=== PATIENT | female | born 1950 | race Caucasian/White ===

== ENCOUNTER → 2021-07-02 10:58 | Outpatient (CLI) | payer MEDICARE, SELFPAY ==
[2021-07-02 13:03] LABS: COVID19 -Nasal RAPID Negative (Negative)
== END ==
PROVIDERS: Visit Provider Physician Assistant
DX: Z20.822 Contact with and (suspected) exposure to COVID-19 (principal)
CPT/HCPCS: 87635; C9803

== ENCOUNTER 2021-07-05 06:16 | Inpatient (IN) | payer MEDICARE, SELFPAY ==
[2021-06-22 12:46] VITALS: BMI 26.6
[2021-07-05] VITALS (18 sets, daily range): BP systolic 110–148; BP diastolic 52–78; PULSE 70–110; RESP 12–22; TEMP 35.5–37.3; O2SAT 93–99; BMI 26.6
--- NOTE | 2021-07-05 06:00 | DI.RAD.S_ITS ---
PROCEDURE: XR KNEE RT 1TO2V INDICATIONS: postop prosthesis placement TECHNIQUE: 2 view(s) of the knee acquired. COMPARISON: [facility], CR, XR KNEE ARTHRITIC SERIES BI, 12/24/2020, 10:28. FINDINGS: Bones: Interval revision of the right knee arthroplasties with the current prosthetic components in expected positions. No periprosthetic fractures or evidence of loosening/infection. Soft tissues: Overlying postoperative changes are noted. IMPRESSION: Expected immediate postoperative appearance of Revised right TKA. Dictated by: Ty Galvan RRA Interpreted: Tyson Rowe MD on 07/05/2021 at 11:01 Transcribed by: KATHARINA on 07/05/2021 at 11:02 Approved by: Tyson Rowe M.D. on 07/05/2021 at 16:24
[2021-07-05] MEDS: ACETAMINOPHEN 325 MG TABLET 975 MG PO (06:49)
[2021-07-05] MEDS: LACTATED RINGERS 1,000 ML 42 ML IV ×2 (06:50→10:10)
[2021-07-05] MEDS: PREGABALIN 75 MG CAPSULE PO (06:50)
[2021-07-05] MEDS: CELECOXIB 200 MG CAPSULE PO (06:50)
--- NOTE | 2021-07-05 07:28 | PM.PREOP ---
Pre-operative Note COVID-19 COVID-19 status: Negative Result date/Date tested (Pos, Neg/Pending): 07/02/21 Interval Note History & Physical reviewed/Exam performed by Physician: Yes Changes to H&P: No
--- NOTE | 2021-07-05 07:29 | P.OP_ITS ---
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 Revision right total knee replacement, tibial and femoral components 2. Repair of patellar tendon avulsion from tibia Same procedure as scheduled: Yes (With the addition of repair of the patellar tendon) Indications: The patient is a 70-year-old woman had a previously well- functioning right total knee replacement with the onset of pain approximately a year ago without relief with non operative measures. Preoperative workup has shown no infection and also no obvious loosening on bone scan. She has requested revision after discussion the risks benefits and alternatives. Risks discussed included but were not limited to: Failure to relieve pain, failure to improve function, stiffness, infection, nerve damage, deep venous thrombosis, pulmonary embolism, stroke, myocardial infarction, permanent paralysis, aspiration pneumonia and . Surgeon: Giovani Carranza [employer] Operator: Neftaly Emmanuel Click Yes if Unassisted: No Operative Notes Findings: Improved flexion after revision. The prosthetic was not grossly obviously loose but relatively quickly from the bone so likely had loosening occurring. Closure Type: primary Specimen(s): other (Tissue and swabs for culture) Prosthetic devices, grafts, tissues, transplants, or devices: Implants used in this procedure were manufactured by the [employer] and [email or web address] and included the Legion revision total knee system total knee replacement with a size 4 right revision tibial base plate with a 4 mm offset marine animal trainer and a 15 x 120 mm straight Press-Fit stem. On the femoral side there was a size 5 Oxinium femoral component with a 4 mm offset marine animal trainer and a straight 16 mm x 120 mm probe Press-Fit stem. There was a 13 mm high flexion crosslink polyethylene tibial insert. Patella was left in situ. In addition two Mitek Healix Advance BR 5.5 mm triple threaded anchors were used to reattach the patellar tendon. Applied: implant(s) Estimated Blood Loss (mL): 50 Blood products transfused: none Tourniquet time (min): 84 Procedure in detail: The patient was seen in the pre-operative area, where the patient identified the right knee as the operative site and this was marked with my initials. The patient received pre-operative antibiotics, and was taken to the operating room and placed on the operative table in the supine position. After satisfactory anesthesia, a multimedia services manager out was performed. The right leg was encircled with a tourniquet about the proximal thigh, and the leg was prepared from the toes to the tourniquet with ChloroPrep in the usual fashion and draped through sterile drapes. The leg was elevated and exsanguinated with Eschmark bandage and the tourniquet inflated to 250 mmHg pressure. The knee was approached through an the previous incision, excising the scar and carried into the knee through a medial parapatellar arthrotomy. Care was taken to mobilize the patella without eversion however during retraction the patellar tendon insertion did avulse from the tibia. The tibial insert was removed. The femoral component was removed from the femur using revision osteotomes and flexible osteotomes. Likewise the tibia was removed in the same manner. The intramedullary guide was used to progressively ream the tibial canal to the appropriate depth and diameter. The cutting block for the tibia was placed on the handle of the Reamer. A proximal tibial skim cut was made. The appropriate Sizer was applied and a 4 mm offset at the 5 o'clock position was found to be appropriate. The guide was pinned in and the proximal offset for the stem placed with the Reamer. The Reamer was then progressed distally down the handle of intramedullary bernadette to ream for the marine animal trainer. The trial tibial component was assembled and placed. We then turned our attention to the femur. The intramedullary guide reamers were used to the appropriate fit and depth. The distal cutting block was applied and a distal skim cut made for the femur. Based on the size of the extracted femoral component the 5 block was chosen. The anterior posterior and chamfer cuts were then made. Again the central canal was reamed to the appropriate depth both with an offset for the proximal offset and then down the handle of the Reamer to allow position of the marine animal trainer. The trial femoral component was created and implanted. The intercondylar notch was cut through the femoral trial. We then trialed with various sizes of tibial inserts until stability and range of motion was optimized. Range of motion was 0-130 degrees with good stability throughout the range. The trials were then removed. The bone was prepared with pulsatile lavage, and dried with a sponge. Cement was applied and the final prosthetics placed. Excess cement was removed during and after cement curing. After confirming there was no extruded cement posteriorly, the final tibial insert was placed. The joint capsule and subcutaneous tissues wwere injected with a mixture of 60 ml 0.25% Marcaine mixed with 20 ml Exparel and 4 mg of morphine for post-operative pain control. The knee was copiously irrigated and the tourniquet deflated. Hemostasis was o btained. The 2 suture anchors were placed in the tibial tubercle and the sutures used to reattached the distal patellar tendon. This gave good fixation of the tendon which did not appear to be stressed in deep flexion. This was reinforced by capsular closure. The capsule was closed with interrupted # 2 polyester suture. The subcutaneous layer was closed with 3-0 Vicryl, and the skin with a running 3-0 V-Lock suture and SteriStrips. An Aquacel Ag dressing was applied and the patient was taken to recovery having tolerated the procedure well. Complications: other (Avulsion of the patellar tendon, repaired as noted above.) Post-operative Condition: stable Disposition: PACU Plan for aftercare: The patient will be maintained on a standard total knee replacement protocol with weight bearing as tolerated. The patient will receive aspirin and sequential compression devices for DVT prophylaxis. The patient will be discharged home when safe for the home environment.
[2021-07-05] MEDS: CEFAZOLIN 1 GM VIAL 2 GM IV (07:55)
[2021-07-05] MEDS: TRANEXAMIC ACID 1,000 MG VIAL 1000 MG INJ ×2 (08:03→09:48)
--- NOTE | 2021-07-05 08:25 | SUR.OPER ---
Supine on padded OR bed. Pillow under head, arms secured on padded armboards <90 degree abduction. Safety belt across torso. Non-operative leg secured with tape over blanket over lower leg. Operative leg secured in DeMayo/Aren/Nathe positioner. Foam padded brace at thigh of operative leg.
[2021-07-05] MEDS: BUPIVACAINE LIPOSOME 266 MG/20 ML VIAL INJ (08:35)
[2021-07-05] MEDS: MORPHINE 4 MG/ML INJ INJ (08:36)
[2021-07-05] MEDS: BUPIVACAINE 0.25% (PF) 60 ML, EPINEPHrine 0.3 MG INJ (08:37)
--- NOTE | 2021-07-05 10:23 | SUR.PHASEI ---
Patient to PACU after General Anesthesia. Pt awoke to voice and denied pain. Breathing unassisted on room air. SBAR report from Anesth and Naseem RN
[2021-07-05] MEDS: LACTATED RINGERS 1,000 ML 100 ML IV ×3 (11:23→18:43)
[2021-07-05] MEDS: INSULIN LISPRO 100 UNIT/ML 3ML VIAL SUBCUT ×2 (12:15→17:05)
[2021-07-05] MEDS: IBUPROFEN 400 MG TABLET PO ×3 (12:18→20:31)
--- NOTE | 2021-07-05 14:35 | PT.IIE ---
Current Diagnoses Mechanical loosening of internal right knee prosthetic joint, initial encounter (07/05/21) Surgery Performed Operation Date: 07/05/21 07:45 Actual Procedures p Total Knee Arthroplasty Revision- all components(Right) - Giovani Carranza MD Medical History (Last Updated 06/22/21 @ 13:13 by Ludivina Cruz RN) Acid reflux Diabetes HLD (hyperlipidemia) HTN (hypertension) Osteoarthritis Physical Therapy Inpatient Evaluation/Re-Eval M1 PT/OT-IP Prior Functional Status Start: 07/05/21 11:32 Freq: NEEDED Status: Active Protocol: Document 07/05/21 14:35 JG (Rec: 07/05/21 15:01 [id number]) Medical Review Prior Functional Status Medical History Reviewed Yes Diet/Fluid Consistency Regular Communication Pt able to understand and communicate with full sentances. Mobility and Gait Pt was able to ambulate in her home and community without AD , but with R knee pain. Social History Household Members spouse,other Living Arrangements House Number of Floors (Floors) Two Floors Number of Stairs To Enter/Railing? 3 stairs inside home to access bedroom and upstairs bathroom . [place] does not have railing, has hahn on both sides. Home Environment Standard Height Toilet,Tub/ Shower Home Equipment Front Wheel Walker,Straight Cane,Grab Bars In Shower Employment Status Unknown Additional Social History Comment Pt reports spouse does not have any limitations and is able to provide caregiving during R TKA recovery. Pt reports she and her spouse are a team. Pt reports that her son and grandson live next door and they visit almost every day. 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 M2 PT-IP Current Condition Start: 07/05/21 11:32 Freq: NEEDED Status: Active Protocol: Document 07/05/21 14:35 JG (Rec: 07/05/21 15:01 Laine [id number]) Physical Therapy Current Condition Current Condition Evaluation Date 07/05/21 Treatment Diagnosis S/P R TKA, Impaired mobility and gait, difficulty walking Onset Date 07/05/21 M3 PT-IP Subjective Start: 07/05/21 11:32 Freq: NEEDED Status: Active Protocol: Document 07/05/21 14:35 JG (Rec: 07/05/21 15:01 [id number]) Subjective Physical Therapy Visit Type Type Initial Evaluation Visit Start Time 14:07 Visit Stop Time 14:35 Total Visit Minutes 28 Physical Therapy Visit Comments Patient Comments Pt reports that she is feeling better compared at this point post-surgery compared to her prior two knee surgeries. Patient Goals Pt wants to be able to ambulate around her home and community without knee pain or distance limitation. Therapy Pain Assessment Pain Present Pain Present Pain Reported Location R Knee Intensity 7 Scale Used Numeric (0 - 10) Description Acute,With Movement Pain Behaviors Guarding Pain Management Techniques Apply Cold,Re-positioning, Timing of Activity with Medications M4 PT-IP Mobility and Gait Start: 07/05/21 11:32 Freq: NEEDED Status: Active Protocol: Document 07/05/21 14:35 AW (Rec: 07/05/21 14:55 AW [id number]) PT-Bed Mobility Assessment Supine to Sit Supine to Sit Minimal Assistance,1 Person Assistance,Head of Bed Elevated Scooting Scooting to Edge of Bed Contact Guard Assistance PT-Transfer Assessment Sit to and From Stand Sit to and from Stand Contact Guard Assistance, Minimal Assistance,1 Person Assistance,Use of Upper Extremities Equipment Transfer Assistive Device Gait Belt,Front Wheeled Walker Transfers Transfer Destination Chair,Toilet Transfer Technique ambulated with FWW Transfer Ability Level of Assist Minimal Assistance,1 Person Assistance,Use of Upper Extremities Comments Mobility Comments Pt was lying in bed as PT and SPT arrived. She needed min assist to support her operative leg to the right EOB . She was able to sit with and without UE support. She stood using FWW and was able to shift weight laterally and offload her RLE appropriately. She ambulated toward the window with FWW CGA and then requested to use the toilet. Arriving at the toilet, pt reported nausea and had a small amount of emesis in standing. With symptoms resolved, she sat on the toilet min assist and cues for sequencing. Sit to stand from the toilet was min assist. Pt walked to the bedside chair and transferred CGA. Pt was left with call light and tray table in reach, fresh ice packs on R knee. Pt agreed to use the call light for all mobility needs. Gait Assessment Gait Gait Assistance Required: Contact Guard Assist Distance (Feet) 25 Able to Maintain Weight Bearing Status Yes During Gait Assistive Devices Assistive Device Gait Belt,Front Wheeled Walker Orthotic/Prosthetic Devices or Brace: No Gait Deviations General Gait Pattern Antalgic,Decreased Stride Length,Decreased Feet Clearance,Flexed Trunk,Step-to Gait Factors Limiting Gait Function Factors Limiting Gait Function Decreased Strength,Limited Range of Motion,Pain Comments Gait Comments See mobility comments for details. Stair Climbing Assessment Comments Stair Climbing Comments Not assessed. PT-Balance Assessment Sitting Balance and Reactions Static Sitting Balance Ability Normal Dynamic Sitting Balance Ability Good Standing Balance and Reactions Static Standing Balance Ability Good Dynamic Standing Balance Ability Good Device Used FWW M5 PT-IP Objective Assessments Start: 07/05/21 11:32 Freq: NEEDED Status: Active Protocol: Document 07/05/21 14:35 JG (Rec: 07/05/21 15:01 [id number]) Orientation Orientation/Cognition Level of Alertness Alert Orientation Name,Place,Situation Language Function Ability No Deficits Noted Safety Awareness Understands Safety Issues Memory Description No Deficits Noted Comments Pt reported understanding weightbearing as tolerated and was highly interested in transfering from bed to chair. Pt demostrated confidence while transfering and ambulating. Pt may need further education on weightbearing as tolerated, recovery expectations, and activity modification. Gross Range of Motion Lower Extremity ROM Assessment Right Impaired Impairments L knee and ankle AROM WFL. R ankle AROM WFL. R knee AROM flex moderately limited and ext mild limitation. R knee PROM flex mild limitation and no ext limitation. Strength Lower Extremity Strength Assessment Right Impaired Ankle 5/5 bilat PF and DF. 5/5 L knee flex and ext. Comments Strength Comments L LE gross strength 5/5. R knee not tested. Coordination Assessment Gross Coordination Gross Coordination WNL Sensation Assessment Sensation Gross Sensation WNL Light Touch Intact Proprioception (Position) Intact Comments Sensation Comments Pt denied sensation difference between R and L. Pt denied sensation dysfunction symptoms bilat LE. Muscle Tone Muscle Tone WNL Yes M6 PT-IP Treatment Start: 07/05/21 11:32 Freq: NEEDED Status: Active Protocol: Document 07/05/21 14:35 JG (Rec: 07/05/21 15:01 [id number]) Physical Therapy Treatment Education Education Provided Precautions,Weight Bearing Status,Post-Op Packet,Safety M7 PT-IP Assessment and Plan Start: 07/05/21 11:32 Freq: NEEDED Status: Active Protocol: Document 07/05/21 14:35 JG (Rec: 07/05/21 15:01 [id number]) PT Summary Assessment and Plan Potential Rehabilitation Potential Excellent Status of Condition at Evaluation Evolving Summary Impairments Pain,ROM,Transfers,Gait, Activity Tolerance Progress Towards Goals Progressing Toward Goals Assessment Summary Claudia is a 70 yo woman seen for PT evaluation on day of surgery following R TKA. She was indep at baseline for all ADLs, ambulation, transfers, and functional movement with increase in R knee pain. On evaluation, Claudia required 1 person min assist with gait pattern, hand placement during transfers, and FWW management cues. Pt will likely be safe to discharge to home with assist once medically cleared. Will need to progress gait distance, decrease assist requirement, and demonstrate safe stair ambulation before discharge. Goals Bed Mobility Goal Standby Assistance Transfer Goal Standby Assistance,Front Wheeled Walker Gait Goal Standby Assistance,Front Wheel Walker Gait Distance 150 Other Goals 3 stairs ascend and descend w/ CGA Days to Meet Goals 2 Frequency of Treatment Frequency Of Treatment Twice a Day Treatment Plan Physical Therapy Treatment Plan Bed Mobility Training,Transfer Training,Gait Training, Therapeutic Exercise,Balance Retraining,Post Op Education, Discharge Planning,Hot or Cold Pack Other Recommendations and Next Treatment Progress gait with FWW. Focus Introduce stair ambulation. Introduce ther ex. Weight Bearing Status Weight Bearing Status Weight Bear as Tolerated Recommendations To Nursing Amount of Assist Needed 1 Person Assist Discharge Recommendations PT Discharge Recommendations Home with Assistance, Outpatient PT Other Discharge Recommendations Pt reports 12 OP PT appts scheduled Transportation Needs at Discharge Private Vehicle Treatment was provided by Berenice Ledesma, SPT and supervised by Autumn Hercules, PT. I personally reviewed this note and agree with its contents.
[2021-07-05] MEDS: ACETAMINOPHEN 325 MG TABLET 650 MG PO ×2 (15:54→20:32)
--- NOTE | 2021-07-05 19:29 | PC.NURSE ---
Patient A/O x 3, remains 96-99% on RA throughout shift. Denies pain. RLE DSG remains CDI, CMS intact. VSS. LR @ 100 infusing without complication. Patient voided while up with PT, reports she is passing flatus, BT active x 4. Patient wearing glasses. brought belongings from home. Call light in reach. Denies further needs.
[2021-07-05] MEDS: METFORMIN HCL 500 MG TABLET 1000 MG PO (20:31)
[2021-07-05] MEDS: DOCUSATE 100 MG CAPSULE PO (20:31)
[2021-07-05] MEDS: ASPIRIN EC 81 MG TABLET PO (20:32)
[2021-07-05] MEDS: PANTOPRAZOLE DR 40 MG TABLET PO (20:32)
[2021-07-06] MEDS: IBUPROFEN 400 MG TABLET PO ×2 (02:00→09:33)
[2021-07-06] MEDS: LACTATED RINGERS 1,000 ML 100 ML IV (03:30)
[2021-07-06 05:31] VITALS: BP 116/56; PULSE 69; RESP 69; TEMP 36; O2SAT 99
[2021-07-06 06:16] LABS: Hematocrit 29.3 % (36-46); Hemoglobin 9.6 g/dL (12.0-16.0)
[2021-07-06 07:30] VITALS: BP 130/67; PULSE 79; RESP 20; TEMP 35.5; O2SAT 96
[2021-07-06 07:52] VITALS: O2SAT 96
[2021-07-06 09:32] VITALS: BP 130/67
[2021-07-06] MEDS: DOCUSATE 100 MG CAPSULE PO (09:32)
[2021-07-06] MEDS: ACETAMINOPHEN 325 MG TABLET 650 MG PO (09:32)
[2021-07-06] MEDS: lisinopriL 20 MG TABLET PO (09:32)
[2021-07-06] MEDS: PANTOPRAZOLE DR 40 MG TABLET PO (09:32)
[2021-07-06] MEDS: ATORVASTATIN 20 MG TABLET 80 MG PO (09:33)
[2021-07-06] MEDS: ASPIRIN EC 81 MG TABLET PO (09:33)
[2021-07-06] MEDS: METFORMIN HCL 500 MG TABLET 1000 MG PO (09:33)
[2021-07-06] MEDS: PSYLLIUM HUSK 1 PACKET PO (09:34)
--- NOTE | 2021-07-06 09:59 | PM.DS.1 ---
History of Present Illness History of Present Illness Date Patient Seen: 07/06/21 Time Patient Seen: 09:59 Chief complaint: Right knee pain s/p right TKA revision Narrative: The patient is complaining of mild right knee pain this morning. She is currently up and moving with physical therapy. She denies any new numbness or tingling. No nausea or vomiting. No fevers, chills, night sweats. Overall she is feeling well and would like to be discharged home today after she clears physical therapy. Discharge Providers Provider Date of admission: 07/05/21 06:16 Discharge Date: 07/06/21 Primary care physician: Peggy Swanson PA-C Consults: 07/05/21 11:04 Consult to Discharge Planning Routine Comment: Consult to Physical Therapy Evaluate & Treat Comment: Physician Instructions: postop TKA protocol Consult to Respiratory Therapy Evaluate & Treat Comment: Physician Instructions: Evaluate and treat Discharge provider: Kelly Perez PA-C Summary Hospital Course Discharge Diagnosis: -Failed right total knee replacement -Intraoperative avulsion of patellar tendon from tibia Hospital Course: Date of procedure: 07/05/21 Time of procedure: 10:19 Procedure & Clinicians Procedure: 1.? Revision right total knee replacement, tibial and femoral components 2. Repair of patellar tendon avulsion from tibia Same procedure as scheduled: Yes (With the addition of repair of the patellar tendon) Indications: The patient is a 70-year-old woman had a previously well-functioning right total knee replacement with the onset of pain approximately a year ago without relief with non operative measures.? Preoperative workup has shown no infection and also no obvious loosening on bone scan.? She has requested revision after discussion the risks benefits and alternatives.? Risks discussed included but were not limited to:? Failure to relieve pain, failure to improve function, stiffness, infection, nerve damage, deep venous thrombosis, pulmonary embolism, stroke, myocardial infarction, permanent paralysis, aspiration pneumonia and . Surgeon: Giovani Carranza Electronics Technician Apprentice: Neftaly Emmanuel Click Yes if Unassisted: No Operative Notes Findings: Improved flexion after revision.? The prosthetic was not grossly obviously loose but relatively quickly from the bone so likely had loosening occurring. Closure Type: primary Specimen(s): other (Tissue and swabs for culture) Prosthetic devices, grafts, tissues, transplants, or devices: Implants used in this procedure were manufactured by the [employer] and [employer] and included the [facility] revision total knee system total knee replacement with a size 4 right revision tibial base plate with a 4 mm offset remelt pan tank operator and a 15 x 120 mm straight Press-Fit stem.? On the femoral side there was a size 5 Oxinium femoral component with a 4 mm offset remelt pan tank operator and a straight 16 mm x 120 mm probe Press-Fit stem.? There was a 13 mm high flexion crosslink polyethylene tibial insert.? Patella was left in situ.? In addition two [employer] Healix Advance BR 5.5 mm triple threaded anchors were used to reattach the patellar tendon. Applied: implant(s) Estimated Blood Loss (mL): 50 Blood products transfused: none Tourniquet time (min): 84 Status at Discharge Cognitive/behavioral status at discharge: oriented Functional status at discharge: uses cane/walker Overall status at discharge: patient is progressing back to baseline Exam Vital Signs (past 8 hours): - 07/06/21 05:31 07/06/21 07:30 07/06/21 07:52 Temperature 96.8 F L 96 F L Pulse Rate 69 79 Respiratory Rate 69 H 20 Blood Pressure 116/56 L 130/67 Pulse Oximetry 99 96 96 07/06/21 09:32 Temperature Pulse Rate Respiratory Rate Blood Pressure 130/67 Pulse Oximetry Fraction of Inspired Oxygen 21 Oxygen Delivery Method Room Air Oxygen Flow Rate 0 Narrative Exam Narrative: Pleasant 70-year-old female, standing with her physical therapist, no acute distress. Dressing is clean, dry, intact. Bilateral lower extremity motor function is grossly intact to light touch. Bilateral calves are soft, nontender to palpation. Objective Labs Result Diagrams: 07/06/21 05:50 Labs: Laboratory Results - last 24 hr 07/06/21 05:50 Hgb 9.6 L Hct 29.3 L PFSH Medical History Acid reflux Diabetes HLD (hyperlipidemia) HTN (hypertension) Osteoarthritis Surgical History H/O left wrist surgery History of bilateral tubal ligation History of bunionectomy of right great toe History of prosthetic unicompartmental arthroplasty of right knee History of right knee joint replacement Hx of tonsillectomy Social History household members: spouse and other Smoking Status: Never smoker alcohol intake: never Discharge Assessment & Plan Assessment and Plan Assessment: Stable status post right total knee arthroplasty revision and intraoperative patellar tendon avulsion from the tibia Plan of Treatment: -mobilize with PT. Weightbearing as tolerated with front wheel walker -continue with current pain regimen and DVT prophylaxis -DC home when cleared by PT Discharge Plan Discharge Plan Patient Disposition: Home Discharge orders & Medications Prescriptions: New acetaminophen 500 mg capsule 500 mg PO Q4H MDD Max 3000 mg per day PRN (Reason: fever or pain) Qty: 90 RF: 0 aspirin 81 mg Tablet,Delayed Release (Dr/Ec) 81 mg PO BID PRN (Reason: X6 weeks to prevent blood clots) Qty: 90 RF: 0 docusate sodium 100 mg Capsule 100 mg PO BID PRN (Reason: Constipation from narcotic pain meds) Qty: 20 RF: 0 ibuprofen 400 mg Tablet 400 mg PO Q4HR MDD Max 2400 mg per day PRN (Reason: Pain/inflammation) Qty: 90 RF: 0 oxycodone 5 mg Tablet 5 mg PO Q4H PRN (Reason: Pain, Moderate (4-6)) Qty: 20 RF: 0 Continued atorvastatin 80 mg Tablet 80 mg PO DAILY RF: 0 lisinopril 20 mg Tablet 20 mg PO DAILY RF: 0 omeprazole 40 mg Capsule,Delayed Release(Dr/Ec) 40 mg PO BID RF: 0 glimepiride 1 mg Tablet 3 mg PO QAM RF: 0 metformin 1,000 mg Tablet 1,000 mg PO BID RF: 0 naproxen sodium [Aleve] 220 mg Capsule 440 mg PO DAILY PRN (Reason: Pain) RF: 0 Metamucil 3.4 gram/5.4 gram Powder 1 tbsp PO DAILY RF: 0 Discontinued aspirin [Aspir-81] 81 mg Tablet,Delayed Release (Dr/Ec) 81 mg PO BEDTIME RF: 0 Follow up/Referrals: Peggy Swanson PA-C [Primary Care Provider] - Giovani Carranza MD [Physician] - (10-14 days for postoperative visit) Diet/Activity/Treatments Diet: Diet as Tolerated and Regular Other treatments: Medications: -Aspirin 81mg twice daily x6 weeks to prevent blood clots. -OTC Tylenol 500 mg 1 tablet every 4 hours as needed for pain/fever. Max 6 tablets per day. -Ibuprofen 400 mg 1 tablet every 4 hours as needed for pain/inflammation. Max 2,400 mg per day. -Oxycodone 5 mg take 1-2 tablets every 4 hours as needed for moderate-severe pain (narcotic pain medication). -As needed medications: -Ducolax and /or MiraLax as needed for constipation from narcotic pain medications. -Pepcid AC as needed for stomach upset (usually from aspirin or ibuprofen). Dressing/Wound care: -Remove the Moises wrap 48 hours after surgery. -Keep Aquacell dressing in place until postoperative follow-up office visit. -Okay to shower. Keep wound out of direct water stream. No soaking or submerging until all the scabs fall off (approximately 6 weeks). -Please call the office if dressing becomes wet, soiled, or saturated. Activities: -Weight-bearing as tolerated. Use front wheeled walker, and progress to cane when safe. -Continue with home exercises as directed by your physical therapist. -Elevate ?toes above the nose if you have significant swelling in your lower leg. (A wedge pillow is easiest.) -Ice your incision as needed for pain/inflammation/swelling. Protect your skin with a folded pillowcase. Follow-up: -Follow-up with your surgeon or PA in the office in 10-14 days after surgery. -Follow-up with your surgeon 6 weeks postoperatively. Call the office if you have chest pain, shortness of breath, significant swelling that will not resolve with elevating, fever over 101?, significantly worsening pain. [facility]: [phone] Skin/Wound/Dressing Care Report to your healthcare provider any signs of infection, such as:: chills, fever, night sweats, unusual drainage and unusual redness Visit Report/Discharge Packet Instructions: DI for Knee Replacement Stand Alone Forms: Surgery Discharge Discharge Data Primary Care Provider: Peggy Swanson VTE Deep Vein Thrombosis/Pulmonary Embolism Present on Admission: No
--- NOTE | 2021-07-06 10:04 | PT.IPTN ---
Current Diagnoses Mechanical loosening of internal right knee prosthetic joint, initial encounter (07/05/21) Surgery Performed Operation Date: 07/05/21 07:45 Actual Procedures p Total Knee Arthroplasty Revision- all components(Right) - Giovani Carranza MD Physical Therapy Treatment Note M2 PT-IP Current Condition Start: 07/05/21 11:32 Freq: NEEDED Status: Active Protocol: Document 07/05/21 14:35 JG (Rec: 07/05/21 15:01 JG [id number]) Physical Therapy Current Condition Current Condition Evaluation Date 07/05/21 Treatment Diagnosis S/P R TKA, Impaired mobility and gait, difficulty walking Onset Date 07/05/21 M3 PT-IP Subjective Start: 07/05/21 11:32 Freq: NEEDED Status: Active Protocol: Document 07/06/21 09:38 KS (Rec: 07/06/21 10:23 KS [id number]) Subjective Physical Therapy Visit Type Type Treatment Note Visit Start Time 09:38 Visit Stop Time 10:04 Total Visit Minutes 26 Number of ELEVATOR SERVICE TECHNICIAN Visits 1 Physical Therapy Visit Comments Patient Comments Pt agreeable to working w/ therapy. Patient Goals Pt wants to be able to ambulate around her home and community without knee pain or distance limitation. Therapy Pain Assessment Pain When Pain Assessed After Treatment Pain Present Pain Present Pain Reported Location R Knee Intensity 5 Scale Used Numeric (0 - 10) Description Acute,With Movement Pain Behaviors Guarding Pain Management Techniques Apply Cold,Re-positioning, Timing of Activity with Medications M4 PT-IP Mobility and Gait Start: 07/05/21 11:32 Freq: NEEDED Status: Active Protocol: Document 07/06/21 09:38 KS (Rec: 07/06/21 10:23 KS [id number]) PT-Bed Mobility Assessment Supine to Sit Supine to Sit Standby Assistance,Bedrails Sit to Supine Sit to Supine Standby Assistance,Bedrails Scooting Scooting to Edge of Bed Standby Assistance PT-Transfer Assessment Sit to and From Stand Sit to and from Stand Contact Guard Assistance,1 Person Assistance,Use of Upper Extremities Equipment Transfer Assistive Device Gait Belt,Front Wheeled Walker Transfers Transfer Destination Bed Transfer Technique ambulated with FWW Transfer Ability Level of Assist Contact Guard Assistance,1 Person Assistance,Use of Upper Extremities Comments Mobility Comments Pt in bed upon arrival from therapy. Reveiwed LE exercises including ankle pumps, quad sets, and heel slides. SBA for sup<>sit and scooting EOB. CGA for sit<>stand w/ FWW. Pt then ambulated ~150 ft w/ FWW CGA and cues for equal step length and looking forward. Pts gait improved w/ distance and cues. She returned to room and bed CGA for stand<>sit, SBA for sit<>sup and repositioning in bed. Pt left w/ SCDs and alarm on and all needs in reach. Pt to call spouse for caregiver and stair training this PM prior to d/c . Gait Assessment Gait Gait Assistance Required: Contact Guard Assist Distance (Feet) 150 Able to Maintain Weight Bearing Status Yes During Gait Assistive Devices Assistive Device Gait Belt,Front Wheeled Walker Orthotic/Prosthetic Devices or Brace: No Gait Deviations General Gait Pattern Antalgic,Decreased Stride Length,Decreased Feet Clearance,Flexed Trunk,Step-to Gait Factors Limiting Gait Function Factors Limiting Gait Function Decreased Strength,Limited Range of Motion,Pain Comments Gait Comments See mobility comments for details. Stair Climbing Assessment Comments Stair Climbing Comments Not assessed.Will complete this PM w/ pts . PT-Balance Assessment Sitting Balance and Reactions Static Sitting Balance Ability Normal Dynamic Sitting Balance Ability Good Standing Balance and Reactions Static Standing Balance Ability Good Dynamic Standing Balance Ability Good Device Used FWW M5 PT-IP Objective Assessments Start: 07/05/21 11:32 Freq: NEEDED Status: Active Protocol: Document 07/05/21 14:35 (Rec: 07/05/21 15:01 [id number]) Orientation Orientation/Cognition Level of Alertness Alert Orientation Name,Place,Situation Language Function Ability No Deficits Noted Safety Awareness Understands Safety Issues Memory Description No Deficits Noted Comments Pt reported understanding weightbearing as tolerated and was highly interested in transfering from bed to chair. Pt demostrated confidence while transfering and ambulating. Pt may need further education on weightbearing as tolerated, recovery expectations, and activity modification. Gross Range of Motion Lower Extremity ROM Assessment Right Impaired Impairments L knee and ankle AROM WFL. R ankle AROM WFL. R knee AROM flex moderately limited and ext mild limitation. R knee PROM flex mild limitation and no ext limitation. Strength Lower Extremity Strength Assessment Right Impaired Ankle 5/5 bilat PF and DF. 5/5 L knee flex and ext. Comments Strength Comments L LE gross strength 5/5. R knee not tested. Coordination Assessment Gross Coordination Gross Coordination WNL Sensation Assessment Sensation Gross Sensation WNL Light Touch Intact Proprioception (Position) Intact Comments Sensation Comments Pt denied sensation difference between R and L. Pt denied sensation dysfunction symptoms bilat LE. Muscle Tone Muscle Tone WNL Yes M6 PT-IP Treatment Start: 07/05/21 11:32 Freq: NEEDED Status: Active Protocol: Document 07/06/21 09:38 KS (Rec: 07/06/21 10:23 KS [id number]) Physical Therapy Treatment Exercises Exercises Ankle Pumps,Quad Sets,Heel Slides Education Education Provided Precautions,Weight Bearing Status,Post-Op Packet,Safety M7 PT-IP Assessment and Plan Start: 07/05/21 11:32 Freq: NEEDED Status: Active Protocol: Document 07/06/21 09:38 KS (Rec: 07/06/21 10:23 KS [id number]) PT Summary Assessment and Plan Potential Rehabilitation Potential Excellent Status of Condition at Evaluation Evolving Summary Impairments Pain,ROM,Transfers,Gait, Activity Tolerance Progress Towards Goals Progressing Toward Goals Assessment Summary Pt showed improvement with bed mobility, gait, and tolerance for activity this AM. SBA for all bed mobility, CGA for transfers and ambulation w/ FWW. She was able to tolerate ~150 ft ambulation w/ FWW w/ cues for equal step length. Pt will require caregiver and stair training prior to d/c but anticipating pt to do well and be able to d/c home w/ spouse to assist. Goals Bed Mobility Goal Standby Assistance Transfer Goal Standby Assistance,Front Wheeled Walker Gait Goal Standby Assistance,Front Wheel Walker Gait Distance 150 Other Goals 3 stairs ascend and descend w/ CGA Days to Meet Goals 2 Frequency of Treatment Frequency Of Treatment Twice a Day Treatment Plan Physical Therapy Treatment Plan Bed Mobility Training,Transfer Training,Gait Training, Therapeutic Exercise,Balance Retraining,Post Op Education, Discharge Planning,Hot or Cold Pack Other Recommendations and Next Treatment Progress gait with FWW. Focus Introduce stair ambulation. Reveiw ther ex. Weight Bearing Status Weight Bearing Status Weight Bear as Tolerated Recommendations To Nursing Amount of Assist Needed 1 Person Assist Discharge Recommendations PT Discharge Recommendations Home with Assistance, Outpatient PT Other Discharge Recommendations Pt reports 12 OP PT appts scheduled Transportation Needs at Discharge Private Vehicle
[2021-07-06] MEDS: INSULIN LISPRO 100 UNIT/ML 3ML VIAL SUBCUT ×2 (10:22→12:23)
[2021-07-06] MEDS: GLIMEPIRIDE 2 MG TABLET 3 MG PO (10:22)
[2021-07-06 11:34] VITALS: BP 124/81; PULSE 81; RESP 20; TEMP 35.5; O2SAT 94
--- NOTE | 2021-07-06 11:52 | PC.NURSE ---
Addendum entered by Xander Kulkarni R.N. 07/06/21 14:25: Pt discharged to care of family. PT gave instruction, Pt dressed and escorted to private car. Original Note: Pt alert and responsive conversant. discussed plan for the day. up with PT walking length of hallway. Dressing to RLE clean dry and intact. Pt anticipating going home later today after stair training with PT and .
--- NOTE | 2021-07-06 13:27 | PT.IPTN ---
Current Diagnoses Mechanical loosening of internal right knee prosthetic joint, initial encounter (07/05/21) Surgery Performed Operation Date: 07/05/21 07:45 Actual Procedures p Total Knee Arthroplasty Revision- all components(Right) - Giovani Carranza MD Physical Therapy Treatment Note M2 PT-IP Current Condition Start: 07/05/21 11:32 Freq: NEEDED Status: Active Protocol: Document 07/05/21 14:35 JG (Rec: 07/05/21 15:01 JG [id number]) Physical Therapy Current Condition Current Condition Evaluation Date 07/05/21 Treatment Diagnosis S/P R TKA, Impaired mobility and gait, difficulty walking Onset Date 07/05/21 M3 PT-IP Subjective Start: 07/05/21 11:32 Freq: NEEDED Status: Active Protocol: Document 07/06/21 13:01 KS (Rec: 07/06/21 13:47 KS [id number]) Subjective Physical Therapy Visit Type Type Treatment Note Visit Start Time 13:01 Visit Stop Time 13:27 Total Visit Minutes 26 Number of DIRECTOR OF STATE Visits 2 Physical Therapy Visit Comments Patient Comments Pt agreeable to working w/ therapy. Patient Goals Pt wants to be able to ambulate around her home and community without knee pain or distance limitation. M4 PT-IP Mobility and Gait Start: 07/05/21 11:32 Freq: NEEDED Status: Active Protocol: Document 07/06/21 13:01 KS (Rec: 07/06/21 13:47 KS [id number]) PT-Bed Mobility Assessment Scooting Scooting to Edge of Bed Standby Assistance PT-Transfer Assessment Sit to and From Stand Sit to and from Stand Contact Guard Assistance,1 Person Assistance,Use of Upper Extremities Equipment Transfer Assistive Device Gait Belt,Front Wheeled Walker Transfers Transfer Destination Chair Transfer Technique ambulated with FWW Transfer Ability Level of Assist Contact Guard Assistance,1 Person Assistance,Use of Upper Extremities Comments Mobility Comments Pt sitting in chair w/ present upon arrival from therapy. Demonstrated gaitbelt application to pts . Pts provided assist throughout treatment. Pt sit<> stand CGA w/ FWW and then ambulated ~100 ft to stairwell where she ascended/descended 3 steps x2 w/ step to pattern and CGA. Pt had difficulty on first set using handrail instead of wall for support and has no handrail at home. Pt completed second set of stairs w/ SPC and CGA provided by and was able to avoid handrail use. Pt and state they feel safe to complete steps at home. Pt ambulated additional ~100 ft back to room w/ FWW CGA and cues for equal step length. SBA for stand<>sit in chair. Reveiwed LE exercises and discussed safely getting into car. Pt left in room w/ all needs in reach. Gait Assessment Gait Gait Assistance Required: Contact Guard Assist Distance (Feet) 200 Able to Maintain Weight Bearing Status Yes During Gait Assistive Devices Assistive Device Gait Belt,Front Wheeled Walker Orthotic/Prosthetic Devices or Brace: No Gait Deviations General Gait Pattern Antalgic,Decreased Stride Length,Decreased Feet Clearance,Flexed Trunk,Step-to Gait Factors Limiting Gait Function Factors Limiting Gait Function Decreased Strength,Limited Range of Motion,Pain Comments Gait Comments See mobility comments for details. Stair Climbing Assessment Evaluation Level of Assist On Stairs Contact Guard Assistance,1 Person Assistance Devices Stair Climbing Assistive Devices Straight Cane,Right Railing Technique/Endurance Stair Climbing Direction Ascend and Descend Stair Climbing Technique Step to Step Number of Steps Climbed 3 Stair Climbing Set # Repetitions (reps) 2 Comments Stair Climbing Comments Pt ascended/descended 3 steps x2 w/ step to pattern and CGA. She had difficulty on first set using handrail instead of wall for support and has no handrail at home. Pt completed second set of stairs w/ SPC and CGA provided by and was able to avoid handrail use. PT-Balance Assessment Sitting Balance and Reactions Static Sitting Balance Ability Normal Dynamic Sitting Balance Ability Good Standing Balance and Reactions Static Standing Balance Ability Good Dynamic Standing Balance Ability Good Device Used FWW M5 PT-IP Objective Assessments Start: 07/05/21 11:32 Freq: NEEDED Status: Active Protocol: Document 07/05/21 14:35 (Rec: 07/05/21 15:01 [id number]) Orientation Orientation/Cognition Level of Alertness Alert Orientation Name,Place,Situation Language Function Ability No Deficits Noted Safety Awareness Understands Safety Issues Memory Description No Deficits Noted Comments Pt reported understanding weightbearing as tolerated and was highly interested in transfering from bed to chair. Pt demostrated confidence while transfering and ambulating. Pt may need further education on weightbearing as tolerated, recovery expectations, and activity modification. Gross Range of Motion Lower Extremity ROM Assessment Right Impaired Impairments L knee and ankle AROM WFL. R ankle AROM WFL. R knee AROM flex moderately limited and ext mild limitation. R knee PROM flex mild limitation and no ext limitation. Strength Lower Extremity Strength Assessment Right Impaired Ankle 5/5 bilat PF and DF. 5/5 L knee flex and ext. Comments Strength Comments L LE gross strength 5/5. R knee not tested. Coordination Assessment Gross Coordination Gross Coordination WNL Sensation Assessment Sensation Gross Sensation WNL Light Touch Intact Proprioception (Position) Intact Comments Sensation Comments Pt denied sensation difference between R and L. Pt denied sensation dysfunction symptoms bilat LE. Muscle Tone Muscle Tone WNL Yes M6 PT-IP Treatment Start: 07/05/21 11:32 Freq: NEEDED Status: Active Protocol: Document 07/06/21 13:01 KS (Rec: 07/06/21 13:47 OR [id number]) Physical Therapy Treatment Exercises Exercises Ankle Pumps,Gluteal Sets,Quad Sets,Heel Slides,Straight Leg Raises Education Education Provided Precautions,Weight Bearing Status,Post-Op Packet,Safety Other Treatments Other Treatment Performed Caregiver training M7 PT-IP Assessment and Plan Start: 07/05/21 11:32 Freq: NEEDED Status: Active Protocol: Document 07/06/21 13:01 KS (Rec: 07/06/21 13:47 KS [id number]) PT Summary Assessment and Plan Potential Rehabilitation Potential Excellent Status of Condition at Evaluation Evolving Summary Impairments Pain,ROM,Transfers,Gait, Activity Tolerance Progress Towards Goals Progressing Toward Goals Assessment Summary Completed caregiver training w / pts who was able to safely apply gaitbelt and provide appropriate assist and cues to pt during transfers, gait, and stair training. Pt SBA to CGA for all mobility, CGA for stairs. Pt able to tolerate ~200 ft ambulation w/ FWW w/ cues for equal step length. Ascended/descended 6 total steps w/ wall support and SOC and CGA by . Good carryover when completing LE exercises. Pt will benefit from outpatient rehab to improve ROM, strength, and gait,which she has scheduled to begin next week. Goals Bed Mobility Goal Standby Assistance Transfer Goal Standby Assistance,Front Wheeled Walker Gait Goal Standby Assistance,Front Wheel Walker Gait Distance 150 Other Goals 3 stairs ascend and descend w/ CGA Days to Meet Goals 2 Frequency of Treatment Frequency Of Treatment Twice a Day Treatment Plan Physical Therapy Treatment Plan Bed Mobility Training,Transfer Training,Gait Training, Therapeutic Exercise,Balance Retraining,Post Op Education, Discharge Planning,Hot or Cold Pack Other Recommendations and Next Treatment Progress gait with FWW. Focus Introduce stair ambulation. Reveiw ther ex. Weight Bearing Status Weight Bearing Status Weight Bear as Tolerated Recommendations To Nursing Amount of Assist Needed 1 Person Assist Discharge Recommendations PT Discharge Recommendations Home with Assistance, Outpatient PT Other Discharge Recommendations Pt reports 12 OP PT appts scheduled Transportation Needs at Discharge Private Vehicle
== END 2021-07-06 14:10 | disposition home or self-care (01) | DRG 468 ==
LOC: OR 06:25 → AC 10:40
PROVIDERS: Admitting Provider Orthopaedic Surgery; PCP Physician Assistant; Referring Provider Orthopaedic Surgery; Visit Provider Orthopaedic Surgery
PROC: 0SPC0JZ Removal of Synthetic Substitute from Right Knee Joint, Open Approach (ICD-10-PCS; principal; 2021-07-05 07:45)
DX: T84.032A Mechanical loosening of internal right knee prosthetic joint, initial encounter (principal); E78.5 Hyperlipidemia, unspecified; I10 Essential (primary) hypertension; E11.9 Type 2 diabetes mellitus without complications; Z79.84 Long term (current) use of oral hypoglycemic drugs; Z20.822 Contact with and (suspected) exposure to COVID-19
CPT/HCPCS: 36415; 73560; 82962; 85014; 85018; 87070; 87075; 87176; 87205; 87635; 94762; 97110; 97116; 97161; 97530; C1776; C9803; C9290; J0171; J0690; J1100; J1170; J1815; J2250; J2270; J2405; J2704; J3010